=== PATIENT | female | born 1970 | race African-American/Black ===

== ENCOUNTER 2023-06-07 05:44 | Day surgery (SDC) | payer OTHER ==
[2023-06-07 11:04] VITALS: BMI 20.6
[2023-06-07] MEDS ORDERED: IBUPROFEN 400 MG TABLET (FP) PO PRN (11:42)
[2023-06-07] MEDS ORDERED: ACETAMINOPHEN 325 MG TABLET (FP) PO PRN (11:42)
[2023-06-07] MEDS ORDERED: MIDAZOLAM HCL 2 MG/2 ML SINGLE DOSE VIAL ONE (12:29)
[2023-06-07] MEDS ORDERED: ONDANSETRON 4 MG/2 ML VIAL ONE (12:39)
[2023-06-07] MEDS ORDERED: METOCLOPRAMIDE HCL INJECTION 10 MG/2 ML VIAL ONE (12:39)
[2023-06-07] MEDS ORDERED: GLYCOPYRROLATE 0.2 MG/1 ML VIAL ONE (12:39)
[2023-06-07] MEDS ORDERED: DEXAMETHASONE SOD PHOSPHATE 4 MG/1 ML VIAL ONE (12:39)
[2023-06-07] MEDS ORDERED: PROPOFOL 40 ML ONE (12:40)
[2023-06-07] MEDS ORDERED: ePHEDrine SULFATE 50 MG/1 ML AMPULE ONE (13:01)
[2023-06-07] MEDS ORDERED: oxyCODONE HCL 5 MG TABLET PO PRN (13:40)
[2023-06-07] MEDS ORDERED: ONDANSETRON 4 MG/2 ML VIAL IVPUSH PRN (13:40)
[2023-06-07] MEDS ORDERED: PROMETHAZINE HCL 25 MG/1 ML VIAL IVPB PRN (13:40)
[2023-06-07] MEDS ORDERED: LACTATED RINGERS SOLUTION 1,000 ML IV SCH (13:45)
[2023-06-07 15:26] VITALS: BP 127/77; PULSE 58; RESP 20; TEMP 97.8
== END 2023-06-07 15:26 | disposition home or self-care (01) ==
LOC: JASU-SURG 05:44
PROVIDERS: ATTEND Obstetrics & Gynecology
PROC: 0UDB8ZX Extraction of Endometrium, Via Natural or Artificial Opening Endoscopic, Diagnostic (ICD-10-PCS; 2023-06-07)
PROC: 0UB98ZZ Excision of Uterus, Via Natural or Artificial Opening Endoscopic (ICD-10-PCS; principal; 2023-06-07 11:00)
DX: N95.0 Postmenopausal bleeding (principal); D25.0 Submucous leiomyoma of uterus
CPT/HCPCS: 88305-TC; 88341-TC; 88342-TC; 94760

== ENCOUNTER 2024-01-05 18:35 | Emergency (ER) | payer OTHER ==
[2024-01-05 19:43] VITALS: BMI 28.2
[2024-01-05] MEDS ORDERED: ACETAMINOPHEN INJECTION 100 ML IVPB ONE (19:48)
[2024-01-05] MEDS: ACETAMINOPHEN 1000 MG/100 ML BAG IVPB ONE (20:07)
[2024-01-05 20:28] LABS: BASO % 0.3 % (0-2.0); EOS % 0.2 % (0-4.5); HEMATOCRIT 38.6 % (32.4-45.2); HEMOGLOBIN 12.9 GM/dL (10.7-15.3); LYMPH % 14.8 % (8-40); MCH 28.3 pg (25.7-33.7); MCHC 33.3 g/dl (32.0-36.0); MEAN CELL VOLUME 84.8 fl (80-96); MEAN PLT VOLUME 8.1 fl (7.5-11.1); MONO % 6.4 % (3.8-10.2); NEUT % 78.3 % (42.8-82.8); PLATELET COUNT 266 10^3/uL (134-434); RBC 4.55 M/mm3 (3.60-5.2); RDW 14.3 % (11.6-15.6); WHITE BLOOD COUNT 14.7 K/mm3 (4.0-10.0)
[2024-01-05 20:36] LABS: POTASSIUM 3.7 mmol/L (3.5-5.1)
[2024-01-05 20:37] LABS: CALCIUM 9.4 mg/dL (8.5-10.1); INR 1.1 (0.83-1.09); PROTHROMBIN TIME (PATIENT) 12.8 SEC (9.7-13.0)
[2024-01-05 20:38] LABS: ALBUMIN 4.2 g/dl (3.4-5.0)
[2024-01-05 20:39] LABS: ACTIVATED PTT 27.7 SECONDS (25.2-36.5); BLOOD UREA NITROGEN 6.1 mg/dL (7-18)
[2024-01-05 20:40] VITALS: BP 160/101; PULSE 78; RESP 18
[2024-01-05 20:41] VITALS: TEMP 98.5
[2024-01-05 20:41] LABS: CREATININE 0.7 mg/dL (0.55-1.3)
[2024-01-05 20:43] LABS: TOT PROT 7.4 g/dl (6.4-8.2)
[2024-01-05 20:44] LABS: BILIRUBIN,TOTAL 0.6 mg/dL (0.2-1)
[2024-01-05 20:56] LABS: URINE APPEARANCE CLEAR; URINE BILIRUBIN NEGATIVE (NEGATIVE); URINE COLOR YELLOW; URINE GLUCOSE (UA) NEGATIVE (NEGATIVE); URINE KETONE TRACE (NEGATIVE); URINE LEUK ESTERASE NEGATIVE (NEGATIVE); URINE NITRITE NEGATIVE (NEGATIVE); URINE PROTEIN NEGATIVE (NEGATIVE); URINE UROBILINOGEN 0.2 mg/dL (0.2-1.0)
== END 2024-01-05 20:44 | disposition short-term general hospital (02) ==
LOC: JER 18:35
PROC: 3E033NZ Introduction of Analgesics, Hypnotics, Sedatives into Peripheral Vein, Percutaneous Approach (ICD-10-PCS; principal; 2024-01-05)
DX: R53.1 Weakness (principal); I63.9 Cerebral infarction, unspecified; Z20.822 Contact with and (suspected) exposure to COVID-19
CPT/HCPCS: 0241U-QW; 36415; 70450-TC; 70496-TC; 70498-TC; 80053; 80061; 81003; 82550; 82962; 83036; 84484; 85025; 85610; 85730; 86900; 93005; 93010; 99291; J0131

== ENCOUNTER 2024-11-24 08:11 | Emergency (ER) | payer OTHER ==
[2024-11-24 08:21] VITALS: TEMP 98.4; BMI 23.7
[2024-11-24 09:22] LABS: EPI CELLS 11 /uL (0-25.1); HYALINE CASTS 3 /uL (0-3.1); PH,URINE 5.5 (5.0-8.0); URINE APPEARANCE CLEAR; URINE BACTERIA 9 /uL (0-1359); URINE BILIRUBIN NEGATIVE (NEGATIVE); URINE COLOR YELLOW; URINE GLUCOSE (UA) NEGATIVE (NEGATIVE); URINE KETONE TRACE (NEGATIVE); URINE LEUK ESTERASE NEGATIVE (NEGATIVE); URINE NITRITE NEGATIVE (NEGATIVE); URINE PROTEIN TRACE (NEGATIVE); URINE UROBILINOGEN 0.2 mg/dL (0.2-1.0); URINE WBC 26 /uL (0-25.8)
[2024-11-24 09:41] LABS: BASO % 0.3 % (0-2.0); EOS % 1.2 % (0-4.5); HEMATOCRIT 39.8 % (32.4-45.2); LYMPH % 36.4 % (8-40); MCH 28.4 pg (25.7-33.7); MCHC 32.6 g/dl (32.0-36.0); MEAN CELL VOLUME 87.2 fl (80-96); MEAN PLT VOLUME 8.5 fl (7.5-11.1); MONO % 5.3 % (3.8-10.2); NEUT % 56.8 % (42.8-82.8); PLATELET COUNT 273 10^3/uL (134-434); RBC 4.57 M/mm3 (3.60-5.2); RDW 14.2 % (11.6-15.6); WHITE BLOOD COUNT 8.6 K/mm3 (4.0-10.0)
[2024-11-24 09:58] LABS: URINE RBC 73.5 /uL (0-23.9)
[2024-11-24 10:16] LABS: BLOOD UREA NITROGEN 9.7 mg/dL (7-18); CALCIUM 9.6 mg/dL (8.5-10.1); POTASSIUM 4.2 mmol/L (3.5-5.1)
[2024-11-24 10:35] LABS: BILIRUBIN,TOTAL 0.6 mg/dL (0.2-1); CREATININE 0.6 mg/dL (0.55-1.3); TOT PROT 7.8 g/dl (6.4-8.2)
[2024-11-24 11:25] VITALS: BP 112/83; PULSE 68; RESP 20
== END 2024-11-24 15:33 | disposition home or self-care (01) ==
LOC: JER 08:11
DX: R07.2 Precordial pain (principal); R09.82 Postnasal drip; R31.9 Hematuria, unspecified; R05.9 Cough, unspecified; R09.81 Nasal congestion; R50.9 Fever, unspecified; R42 Dizziness and giddiness; R53.83 Other fatigue; R19.7 Diarrhea, unspecified; K59.00 Constipation, unspecified; R35.0 Frequency of micturition; R10.31 Right lower quadrant pain; Z20.822 Contact with and (suspected) exposure to COVID-19
CPT/HCPCS: 0241U-QW; 36415; 71046-TC-FY; 71275-TC; 80053; 81003; 84484; 84703; 85025; 85379; 87086; 93005; 93010; 99285-25; Q9967